=== PATIENT | female | born 1975 | race Two or more races ===

== ENCOUNTER 2016-08-27 12:43 | Emergency (ER) | payer OTHER ==
[~2016-08-27] VITALS: Ht 165.1 cm; Wt 84.8 kg
--- NOTE | 2016-08-27 12:43 | NUR ---
called for triage, no answer
--- NOTE | 2016-08-27 12:53 | NUR ---
Presents self to ed due to headache., 03/03 since this morning. Pt is aao3,nad, rr even and unlabored. No n/v. skin is warm to touch and non diaphoretic. afebrile. Pending md cui
[2016-08-27] MEDS ORDERED: PROCHLORPERAZINE EDISYLATE 10 MG/2 ML VIAL ONE (13:27)
[2016-08-27] MEDS ORDERED: diphenhydrAMINE HCL 50 MG/ML VIAL ONE (13:27)
[2016-08-27] MEDS ORDERED: IV NS 0.9% 1,000 ML ONE (13:28)
[2016-08-27] MEDS ORDERED: IV SET PRIMARY 1 EA INFUS.SET MC ONE (13:28)
[2016-08-27] MEDS ORDERED: KETOROLAC TROMETHAMINE 15 MG/ML VIAL ONE (13:28)
[2016-08-27] MEDS ORDERED: PROCHLORPERAZINE EDISYLATE 10 MG/2 ML VIAL IVP ONE (13:30)
[2016-08-27] MEDS ORDERED: KETOROLAC TROMETHAMINE INJ 30 MG/ML VIAL IV ONE (13:30)
[2016-08-27] MEDS ORDERED: IV NS 0.9% 1,000 ML BAG IV ONE (13:30)
[2016-08-27] MEDS ORDERED: diphenhydrAMINE HCL 50 MG/ML VIAL IV ONE (13:30)
[2016-08-27 14:40] VITALS: BP 126/79
--- NOTE | 2016-08-27 14:49 | NUR ---
IV removed. Catheter intact and site benign. Pressure and 4x4 applied to site. No bleeding noted.
== END 2016-08-27 14:53 | disposition home or self-care (01) ==
LOC: ER 12:46
DX: G43.909 Migraine, unspecified, not intractable, without status migrainosus (principal); I10 Essential (primary) hypertension
CPT/HCPCS: A4606; J0780; J1200; J1885; J7030; Z7610

== ENCOUNTER 2022-11-17 19:40 | Emergency (ER) | payer OTHER ==
[~2022-11-17] VITALS: Ht 162.6 cm; Wt 74.4 kg
--- NOTE | 2022-11-17 20:45 | NUR ---
BIB SON FOR C/O DIZZINESS, WEAKNESS, N/V AND MID CP. BROUGHT IN VIA WHEELCHAIR, PLACED IN BED, RESPONDING TO VERBAL STIMULI, BREATHING UNLABORED, NAUSEATED.
--- NOTE | 2022-11-17 21:02 | NUR ---
INSERTED IV ESHA G18 ON LEFT AC. BLOOD DRAWN AND SENT TO LAB
[2022-11-17] MEDS ORDERED: METOCLOPRAMIDE HCL 10 MG/2 ML VIAL ONE (21:12)
[2022-11-17] MEDS ORDERED: diphenhydrAMINE HCL 50 MG/ML VIAL ONE (21:12)
[2022-11-17] MEDS ORDERED: LORAZEPAM INJ 2 MG/ML VIAL ONE (21:13)
[2022-11-17] MEDS ORDERED: LORAZEPAM INJ 2 MG/ML VIAL IV ONE (21:30)
[2022-11-17] MEDS ORDERED: METOCLOPRAMIDE HCL 10 MG/2 ML VIAL IV ONE (21:30)
[2022-11-17] MEDS ORDERED: diphenhydrAMINE HCL 50 MG/ML VIAL IV ONE (21:30)
[2022-11-17] MEDS ORDERED: IV NS 0.9% 1,000 ML BAG IV ONE (21:30)
[2022-11-17 21:31] LABS: BASOPHILS % (AUTO) 0.1 % (0.0-2.0); EOSINOPHILS % (AUTO) 0.8 % (0.0-6.0); HEMATOCRIT 41 % (33-45); HEMOGLOBIN 13.3 g/dL (11.5-14.8); LYMPHOCYTES # (AUTO) 1.6 K/uL (0.8-4.8); LYMPHOCYTES % (AUTO) 12.6 % (20.0-44.0); MEAN CORPUSCULAR HGB CONC 32 g/dl (31.0-36.0); MEAN CORPUSCULAR VOLUME 81 fL (82-100); MONOCYTES # (AUTO) 0.4 K/uL (0.1-1.30); MONOCYTES % (AUTO) 3.4 % (2.0-12.0); NEUTROPHILS # (AUTO) 10.7 K/uL (1.8-8.9); NEUTROPHILS % (AUTO) 83.1 % (43.0-81.0); PLATELET COUNT (AUTO) 365 K/uL (150-450); RED BLOOD CELL COUNT(AUTO) 5.13 MIL/uL (4.0-5.2); WHITE BLOOD COUNT (AUTO) 12.9 K/uL (4.3-11.0)
[2022-11-17 21:40] LABS: CALCIUM, SERUM 9.4 mg/dL (8.5-10.1); CARBON DIOXIDE 20 mmol/L (21-32); CHLORIDE 102 mmol/L (98-107); CREATININE 0.7 mg/dL (0.6-1.3); GLUCOSE 130 mg/dL (74-106); POTASSIUM 3.7 mmol/L (3.5-5.1); SODIUM SERUM 135 mmol/L (136-145); UREA NITROGEN, BLOOD 9 mg/dL (7-18)
[2022-11-17] MEDS ORDERED: MECL-159 PO (22:24)
--- NOTE | 2022-11-17 22:38 | NUR ---
IV removed. Catheter intact and site benign. Pressure and 4x4 applied to site. No bleeding noted.Patient discharged to home in stable condition. Written and verbal after care instructions given. SON verbalizes understanding of instruction.
[2022-11-17 22:39] VITALS: BP 130/60
== END 2022-11-17 22:38 | disposition home or self-care (01) ==
LOC: ER 19:43
DX: R42 Dizziness and giddiness (principal); I10 Essential (primary) hypertension
CPT/HCPCS: 99285; 96374; 71045; 96375; 96361; 93005; 85025; 80048; 36415; 84484; J2060; J1200; J2765; J7030